=== PATIENT | female | born 1955 | race Caucasian/White ===

== ENCOUNTER 2018-10-30 19:16 | Inpatient (IN) | payer OTHER ==
[~2018-10-30 19:16] MED LIST: VANCOMYCIN 1.5 GM in NA CHLORIDE 0.9% 500 ML IVPB SCH
[2018-10-30] MEDS ORDERED: VANCOMYCIN 1 GM/VIAL ONE (20:32)
[2018-10-30] MEDS ORDERED: PIPER/TAZO/NS 3.375gm 3.375 GM/100 ML BAG ONE (20:33)
--- NOTE | 2018-10-30 20:38 | ER ---
Nurse's Notes [facility] Name: Aurora Miller Age: 63 yrs Sex: Female : 1955 Arrival Date: 10/30/2018 Time: 19:20 Bed 14 Private MD: Diagnosis: Osteomyelitis;Type 1 diabetes mellitus with foot ulcer Presentation: 10/30 19:25 Presenting complaint: Patient states: Dr. Quezada told her to come to the ER to have her ak1 left foot wound "scrubbed out" Home Health nurses have been taking care of wound. pt stated Dr. Quezada stated the Home Health nurses have not been doing a "good job". Transition of care: patient was not received from another setting of care. Onset of symptoms is unknown. Risk Assessment: Do you want to hurt yourself or someone else? Patient reports no desire to harm self or others. Initial Sepsis Screen: Does the patient meet any 2 criteria? No. Patient's initial sepsis screen is negative. Does the patient have a suspected source of infection? No. Patient's initial sepsis screen is negative. Care prior to arrival: None. 19:25 Method Of Arrival: Ambulatory ak1 19:25 Acuity: TIMA 3 ak1 Triage Assessment: 19:29 General: Appears in no apparent distress. Behavior is calm, cooperative. Pain: ak1 Complains of pain in left foot. 22:03 Injury Description: diabetic ulcer to left foot. lc1 Historical: - Allergies: 19:29 No Known Allergies; ak1 - Home Meds: 19:29 Janumet Oral 2 times per day [Active]; Trulicity subcutaneous subcutaneous [Active]; ak1 lisinopril Oral once daily [Active]; atorvastatin Oral once daily [Active]; Aspirin Oral [Active]; - PMHx: 19:29 Diabetes - IDDM; Hypertension; High Cholesterol; ak1 - PSHx: 19:29 ; Right foot sx; left foot - drianed infection; ak1 - Immunization history:: Adult Immunizations unknown. - Social history:: Smoking status: Patient/guardian denies using tobacco. - Ebola Screening: : No symptoms or risks identified at this time. Screenin:30 Abuse screen: Denies threats or abuse. Denies injuries from another. Nutritional ak1 screening: No deficits noted. Tuberculosis screening: No symptoms or risk factors identified. Fall Risk None identified. Assessment: 21:40 General: Appears uncomfortable, Behavior is calm, cooperative. lc1 21:41 Pain: Denies pain. Neuro: No deficits noted. Cardiovascular: No deficits noted. lc1 Cardiovascular: Denies chest pain, shortness of breath. Respiratory: Airway is patent Trachea midline Respiratory effort is even, unlabored. GI: No signs and/or symptoms were reported involving the gastrointestinal system. : No signs and/or symptoms were reported regarding the genitourinary system. EENT: No signs and/or symptoms were reported regarding the EENT system. Derm: Wound noted left foot Wound is ulceration to bottom of left foot with drainage present, patient states she has been seeing Dr Quezada and has home health coming to see her but they have not been cleaning her foot. Reports. Musculoskeletal: No signs and/or symptoms reported regarding the musculoskeletal system. Swelling present in left foot. Vital Signs: 19:29 BP 144 / 75; Pulse 118; Resp 20; Temp 98.5; Pulse Ox 100% on R/A; Weight 87.09 kg (R); ak1 Height 5 ft. 4 in. (162.56 cm); Pain 9/10; 21:45 BP 129 / 66; Pulse 76; Resp 18; Pulse Ox 99% on R/A; lc1 22:03 BP 145 / 74; Pulse 74; Resp 20; Pulse Ox 100% on R/A; lc1 19:29 Body Mass Index 32.96 (87.09 kg, 162.56 cm) ak1 ED Course: 19:20 Patient arrived in ED. cl3 19:26 Triage completed. ak1 19:29 Arm band placed on Patient placed in waiting room, Patient notified of wait time. ak1 19:30 Patient has correct armband on for positive identification. ak1 20:00 No apparent distress. lc1 20:00 Inserted saline lock: 20 gauge in right antecubital area, using aseptic technique. lc1 20:06 Amaury Serna MD is Attending Physician. gs 20:24 Maryann Jaquez is Primary Nurse. lc1 20:36 Jesse Gee DO is Hospitalizing Provider. gs 22:01 No provider procedures requiring assistance completed. lc1 22:02 Awaiting bed assignment. lc1 22:03 Patient admitted, IV remains in place. lc1 Administered Medications: 20:53 Drug: Zosyn 3.375 grams Route: IVPB; Infused Over: 60 mins; Site: right antecubital; 1 21:53 Follow up: Response: No adverse reaction; IV Status: Completed infusion lc1 22:01 Drug: vancoMYCIN 1 grams Route: IVPB; Infused Over: 2 hrs; Site: right antecubital; lc1 22:34 Follow up: Response: No adverse reaction lc1 22:37 Follow up: IV Status: Infusion continued upon admission lc1 Outcome: 20:37 Decision to Hospitalize by Provider. 22:02 Admitted to Tele 1 22:02 Condition: good 22:02 Instructed on the need for admit. 22:15 Admitted to Tele accompanied by tech, room 423, with chart, Report called to savanna 1 22:38 Patient left the ED. 1 Signatures: Maryann Jaquez lc1 Consuelo Palomares RN RN ak1 Amaury Serna MD MD gs Lewis, Charde cl3 Corrections: (The following items were deleted from the chart) 19:30 19:25 Acuity: TIMA 4 ak1 ak1 22:02 20:00 Awaiting bed assignment, 1 1
--- NOTE | 2018-10-30 20:39 | EDPHYS ---
Physician Documentation [facility] Name: Aurora Miller Age: 63 yrs Sex: Female : 1955 Arrival Date: 10/30/2018 Time: 19:20 Bed 14 Private MD: ED Physician Amaury Serna HPI: 10/30 20:21 This 63 yrs old Female presents to ER via Ambulatory with complaints of Foot gs Injury. 20:21 The patient presents with chronic ulcer. Onset: The symptoms/episode began/occurred 5 gs month(s) ago. Associated signs and symptoms: Pertinent negatives: fever, warmth. Severity of symptoms: At their worst the symptoms were severe, in the emergency department the symptoms are unchanged. The patient has experienced similar episodes in the past, chronically. The patient has been recently seen by a physician: sonya Vergara admitted mri, +. Historical: - Allergies: 19:29 No Known Allergies; ak1 - Home Meds: 19:29 Janumet Oral 2 times per day [Active]; Trulicity subcutaneous subcutaneous [Active]; ak1 lisinopril Oral once daily [Active]; atorvastatin Oral once daily [Active]; Aspirin Oral [Active]; - PMHx: 19:29 Diabetes - IDDM; Hypertension; High Cholesterol; ak1 - PSHx: 19:29 ; Right foot sx; left foot - drianed infection; ak1 - Immunization history:: Adult Immunizations unknown. - Social history:: Smoking status: Patient/guardian denies using tobacco. - Ebola Screening: : No symptoms or risks identified at this time. ROS: 20:21 All other systems are negative. gs Exam: 20:21 ENT: Nares patent. No nasal discharge, no septal abnormalities noted. Tympanic gs membranes are normal and external auditory canals are clear. Oropharynx with no redness, swelling, or masses, exudates, or evidence of obstruction, uvula midline. Mucous membranes moist. Neck: Trachea midline, no thyromegaly or masses palpated, and no cervical lymphadenopathy. Supple, full range of motion without nuchal rigidity, or vertebral point tenderness. No Meningismus. Respiratory: Lungs have equal breath sounds bilaterally, clear to auscultation and percussion. No rales, rhonchi or wheezes noted. No increased work of breathing, no retractions or nasal flaring. Abdomen/GI: Soft, non-tender, with normal bowel sounds. No distension or tympany. No guarding or rebound. No evidence of tenderness throughout. 20:21 Neuro: Awake and alert, GCS 15, oriented to person, place, time, and situation. Cranial nerves II-XII grossly intact. Motor strength 5/5 in all extremities. Sensory grossly intact. Cerebellar exam normal. Normal gait. 20:21 Constitutional: The patient appears alert, awake. 20:21 Cardiovascular: Rate: tachycardic, Rhythm: regular. 20:21 Musculoskeletal/extremity: Perfusion: the patient is normally perfused throughout, decreased sensation. 20:21 Skin: lesion(s), stage 5 ulcer bottom left foot. Vital Signs: 19:29 BP 144 / 75; Pulse 118; Resp 20; Temp 98.5; Pulse Ox 100% on R/A; Weight 87.09 kg (R); ak1 Height 5 ft. 4 in. (162.56 cm); Pain 9/10; 21:45 BP 129 / 66; Pulse 76; Resp 18; Pulse Ox 99% on R/A; lc1 22:03 BP 145 / 74; Pulse 74; Resp 20; Pulse Ox 100% on R/A; lc1 19:29 Body Mass Index 32.96 (87.09 kg, 162.56 cm) ak1 MDM: 20:35 Data reviewed: vital signs, nurses notes. Physician consultation: Ernesto Quezada DPM and gs will see patient in inpatient room. 20:37 Patient medically screened. 10/30 20:18 Order name: CBC with Diff; Complete Time: 21:23 10/30 20:18 Order name: Basic Metabolic Panel 10/30 20:18 Order name: Blood Culture* Administered Medications: 20:53 Drug: Zosyn 3.375 grams Route: IVPB; Infused Over: 60 mins; Site: right antecubital; 1 21:53 Follow up: Response: No adverse reaction; IV Status: Completed infusion 1 22:01 Drug: vancoMYCIN 1 grams Route: IVPB; Infused Over: 2 hrs; Site: right antecubital; 1 22:34 Follow up: Response: No adverse reaction [facility] 22:37 Follow up: IV Status: Infusion continued upon admission [facility] Disposition: 10/30/18 20:37 Hospitalization ordered by Jesse Gee for Observation. Preliminary diagnosis are Osteomyelitis, Type 1 diabetes mellitus with foot ulcer. - Bed requested for Telemetry/MedSurg (observation). - Status is Observation. lc1 - Condition is Stable. - Problem is an acute exacerbation. - Symptoms are unchanged. UTI on Admission? No Signatures: Dispatcher [employer] EDMS Grace Wang RN RN Gisele, Maryann 1 Consuelo Palomares RN RN [facility] Amaury Serna MD MD Corrections: (The following items were deleted from the chart) 21:06 20:37 Hospitalization Ordered by Jesse Gee DO for Observation. Preliminary diagnosis is Osteomyelitis; Type 1 diabetes mellitus with foot ulcer. Bed requested for Telemetry/MedSurg (observation). Status is Observation. Condition is Stable. Problem is an acute exacerbation. Symptoms are unchanged. UTI on Admission? No. 22:38 21:06 10/30/2018 20:37 Hospitalization Ordered by Jesse Gee DO for Observation. lc1 Preliminary diagnosis is Osteomyelitis; Type 1 diabetes mellitus with foot ulcer. Bed requested for Telemetry/MedSurg (observation). Status is Observation. Condition is Stable. Problem is an acute exacerbation. Symptoms are unchanged. UTI on Admission? No. glory
[2018-10-30 20:51] LABS: Absolute Lymphocytes (CBC) 1.3 K/uL (0.7-4.9); Basophils % 0.6 % (0-1.3); Hematocrit 31.3 % (36.0-45.0); Lymphocytes % 13.9 % (15.3-44.8); MPV 7.8 fL (7.6-11.3); RBC Red Blood Cell Count 3.63 M/uL (3.86-4.86)
--- NOTE | 2018-10-30 21:17 | P.HP ---
Certification for Inpatient Patient admitted to: Inpatient With expected LOS: >2 Midnights Patient will require the following post-hospital care: Other (Long-term acute care facility verses skilled placement) Practitioner: I am a practitioner with admitting privileges, knowledge of patient current condition, hospital course, and medical plan of care. Services: Services provided to patient in accordance with Admission requirements found in Title 42 Section 412.3 of the Code of Federal Regulations Patient History Date of Service: 10/30/18 Primary Care Provider: Dr. Nicole; Podiatry-Dr. Quezada Reason for admission: Diabetic left foot ulcer History of Present Illness: 63-year-old female presented to the emergency room after she was told by her cooling machine operator to go to the ER for suspected possible osteomyelitis to her left diabetic foot ulcer. Patient has a diabetic foot ulcer to the sole of her foot. This has been present for over a year. It is been getting worse over time. Today she was seen by her cooling machine operator. Podiatry did a debridement earlier today. She was sent to the ER for further evaluation and treatment. Podiatry suspects osteomyelitis. Podiatry recommends inpatient antibiotic treatment and further evaluation for osteomyelitis. Patient was evaluated in the emergency room. White count 9.1, hemoglobin 10.3. BMP pending at this time. Patient with chronic left foot diabetic ulcer. Patient admitted for further evaluation and treatment. When I saw the patient ER, she appeared stable. She was anxious. Patient with underlying hypertension, hyperlipidemia and diabetes mellitus type 2 insulin dependent. Allergies hydromorphone HCl [From Dilaudid] Allergy (Mild, Verified 08/26/14 17:03) Itching No Known Drug Allergies Allergy (Unverified 10/28/14 22:25) Unknown No Known Allergies Allergy (Uncoded 06/20/16 21:22) Unknown Home medications list reviewed: Yes Home Medications: Aspirin 81 mg PO DAILY 08/20/14 Atorvastatin Calcium 20 mg PO DAILY 04/19/18 Hydrochlorothiazide 12.5 mg PO DAILY 04/19/18 Insulin Glargine,Hum.rec.anlog [Richard Brewer] 50 units SQ BEDTIME 04/19/18 Lisinopril 1 tab PO DAILY 04/19/18 Sitagliptin Phos/Metformin HCl [Janumet 50-1,000 mg Tablet] 2 tab PO DAILY 04/19 - Past Medical/Surgical History Diabetic: Yes -: Hypertension -: Hyperlipidemia -: Diabetes mellitus type 2, insulin dependent -: Chronic diabetic foot ulcer left foot -: 2 C sections -: Colonoscopy -: Foot surgeries Psychosocial/ Personal History: Patient lives at home - Family History Family History: Reviewed- Non-Contributory - Family History Mother -: Cancer - Social History Smoking Status: Never smoker Alcohol use: No CD- Drugs: No Caffeine use: No Place of Residence: Home Review of Systems General: As per HPI Eyes: Unremarkable ENT: Unremarkable Respiratory: Unremarkable Cardiovascular: Unremarkable Gastrointestinal: Unremarkable Musculoskeletal: As per HPI Integumentary: As per HPI Neurological: Unremarkable Lymphatics: Unremarkable Physical Examination - Physical Exam General: Alert, In no apparent distress, Oriented x3, Cooperative HEENT: Atraumatic, Normocephalic, PERRLA, Mucous membr. moist/pink Neck: Supple, No Thyromegaly Respiratory: Clear to auscultation bilaterally, Normal air movement Cardiovascular: Normal pulses, Regular rate/rhythm Gastrointestinal: Normal bowel sounds, Soft and benign, Non-distended, No tenderness, No masses, No rebound, No guarding Musculoskeletal: Other (Chronic foot ulcer to the sole of her left foot. It measures the size of a dime. Dried blood to the sole of her foot as this was recently did) Integumentary: Other (As above) Neurological: Normal speech, Normal strength at 5/5 x4 extr, Normal tone, Abnormal affect (Increased anxiety) - Studies Laboratory Data (last 24 hrs) 10/30/18 20:40: WBC 9.1, Hgb 10.3 L, Hct 31.3 L, Plt Count 272 Assessment and Plan - Plan Impression: Chronic left foot diabetic foot ulcer suspect acute osteomyelitis Diabetes mellitus type 2, insulin-dependent Hypertension Hyperlipidemia Anemia suspect iron deficiency Plan: Chronic left foot diabetic foot ulcer suspect acute osteomyelitis: Patient will be admitted for further evaluation and treatment. Will start cefepime and vancomycin. Pharmacy to monitor and adjust. Will order MRI of the left foot tomorrow to evaluate for osteomyelitis. Patient will be kept NPO after midnight as podiatry plans for did further debridement. If positive for osteomyelitis patient will likely require long-term IV antibiotic therapy. Patient will require PICC line if positive. If also positive for osteomyelitis patient will likely require long-term acute care facility placement verses skilled placement. She has been to a facility before. Await findings and recommendations from podiatry and infectious disease. Will provide DVT prophylaxis-Lovenox. Will provide medication for pain. blood cultures obtained. Daytime hospitalist team will continue her care. Diabetes mellitus type 2, insulin-dependent: Will check A1c. Will continue with Accu-Cheks and provide sliding scale. Will restart basal insulin once the patient is taking oral intake. Hypertension: Continue lisinopril medication. Will monitor and adjust appropriately. Hyperlipidemia: Restart Lipitor. Anemia suspect iron deficiency: Will evaluate for iron and B12 deficiency. Discharge Plan: Other (Likely long-term acute care facility placement verses skilled placement) Plan to discharge in: Greater than 2 days - Advance Directives Does patient have a Living Will: No Does patient have a Durable POA for Healthcare: No - Code Status/Comfort Care Code Status Assessed: Yes (Patient is full code) Time Spent Managing Pts Care (In Minutes): 55
[2018-10-30 21:23] LABS: Potassium 5.7 mmol/L (3.5-5.1)
[2018-10-30] MEDS ORDERED: NA CHLORIDE 0.9% 250 ML ONE (21:57)
[2018-10-30] MEDS ORDERED: ACETAMINOPHEN 500 MG TAB PO PRN (22:05)
[2018-10-30] MEDS ORDERED: GABAPENTIN 100 MG CAP PO PRN (22:05)
[2018-10-30] MEDS ORDERED: HYDROCODONE/APAP 7.5/325 MG TAB PO PRN (22:05)
[2018-10-30] MEDS ORDERED: ACETAMINOPHEN 650MG/RECT SUPP RECT PRN (22:05)
[2018-10-30] MEDS: INSULIN -REGULAR HUMAN 50 UNIT/0.5 ML ML SQ SCH (22:05)
[2018-10-30] MEDS ORDERED: TRAMADOL HCL 50 MG TAB PO PRN (22:05)
[2018-10-30] MEDS ORDERED: ONDANSETRON 4 MG/2 ML VIAL IV PRN (22:05)
[2018-10-30] MEDS ORDERED: LORazepam 2 MG/ML VIAL IV PRN (22:05)
[2018-10-30 23:32] VITALS: BMI 32.1
[2018-10-31 00:17] LABS: Urine Appearance TURBID; Urine Bilirubin NEGATIVE (NEG); Urine Blood 2+ (NEG); Urine Color YELLOW; Urine Glucose NEGATIVE (NEG); Urine Protein NEGATIVE (NEG); Urine pH 5.5 (5.0-7.0)
[2018-10-31] MEDS: ATORVASTATIN 20 MG TAB PO SCH ×2 (00:17→21:33)
[2018-10-31] MEDS: LISINOPRIL 10 MG TAB PO SCH ×3 (00:18→21:00)
[2018-10-31] MEDS: FAMOTIDINE 20 MG TAB PO SCH ×3 (00:18→21:33)
[2018-10-31] MEDS: NA CHLORIDE 0.9% 1,000 ML IV SCH ×2 (00:18→17:09)
[2018-10-31 00:19] LABS: Urine Microscopic Reflex ORDER UMIC
--- NOTE | 2018-10-31 00:45 | P.PN ---
Subjective Date of Service: 10/31/18 Primary Care Provider: Dr. Nicole; Podiatry-Dr. Quezada Chief Complaint: Diabetic left foot ulcer Subjective: Doing well Physical Examination - Vital Signs Temperature: 98.5 F Blood Pressure: 145/74 Pulse: 74 Respirations: 20 - Physical Exam General: Alert, In no apparent distress, Oriented x3, Cooperative HEENT: Atraumatic Neck: Supple Respiratory: Clear to auscultation bilaterally, Normal air movement Cardiovascular: Normal pulses, Regular rate/rhythm Gastrointestinal: Normal bowel sounds, Soft and benign, Non-distended Integumentary: Other (No changes to the left foot.) Neurological: Normal speech, Normal strength at 5/5 x4 extr, Normal tone - Studies Laboratory Data (last 24 hrs) 10/30/18 20:40: Sodium 144, Potassium 5.7 H*, BUN 30 H, Creatinine 1.08, Glucose 144 H 10/30/18 20:40: WBC 9.1, Hgb 10.3 L, Hct 31.3 L, Plt Count 272 Medications List Reviewed: Yes Assessment & Plan Discharge Plan: Other (LTAC verses SNF) Plan to discharge in: Greater than 2 days Physician Review Additional Text: Impression: Chronic left foot diabetic foot ulcer suspect acute osteomyelitis Diabetes mellitus type 2, insulin-dependent Hypertension Hyperlipidemia Anemia suspect iron deficiency Hyperkalemia Plan: Chronic left foot diabetic foot ulcer suspect acute osteomyelitis: Continue with IV cefepime and vancomycin. Pharmacy to monitor and adjust medication. Patient to have MRI of left foot today to evaluate for osteomyelitis. Patient will be kept NPO as podiatry plans for further debridement. If positive for osteomyelitis patient will likely require long-term IV antibiotic therapy and will need PICC line. If also positive for osteomyelitis patient will likely require long-term acute care facility placement verses skilled placement. She has been to a facility before. Await findings and recommendations from podiatry and infectious disease. Will provide DVT prophylaxis-Lovenox. Will provide medication for pain. Blood cultures obtained. Daytime hospitalist team will continue her care. Diabetes mellitus type 2, insulin-dependent: Await A1c results. Will continue with Accu-Cheks and provide sliding scale. Will restart basal insulin once the patient is taking oral intake. Hypertension: Continue lisinopril medication. Will monitor and adjust appropriately. Hyperlipidemia: Restart Lipitor. Anemia suspect iron deficiency: Will evaluate for iron and B12 deficiency. Lab pending Hyperkalemia: Will recheck potassium. If elevated will provide Kayexalate. May need to consider adjusting lisinopril. Time Spent Managing Pts Care (In Minutes): 55
[2018-10-31] MEDS ORDERED: SOD POLYSTYREN SUL 15 GM/60 ML UCUP PO ONE (01:12)
[2018-10-31 01:47] LABS: Ferritin 101.1 ng/mL (8-388)
[2018-10-31 02:03] LABS: Urine Bacteria LOADED /HPF (<20); Urine Culture Reflex Order REFLEXED
[2018-10-31 04:54] LABS: Magnesium 1.6 mg/dL (1.8-2.4); Potassium 5.5 mmol/L (3.5-5.1)
[2018-10-31 05:08] LABS: Absolute Lymphocytes (CBC) 1.2 K/uL (0.7-4.9); Basophils % 0.4 % (0-1.3); Hematocrit 28.4 % (36.0-45.0); Lymphocytes % 13.1 % (15.3-44.8); MPV 7.6 fL (7.6-11.3); RBC Red Blood Cell Count 3.31 M/uL (3.86-4.86)
[2018-10-31] MEDS ORDERED: MAGNESIUM SULFATE 1 gm IVPB 1 GM/100 ML BAG IV ONE (05:13)
[2018-10-31] MEDS ORDERED: CEFEPIME 1 GM/100 ML BAG IV ONE (05:44)
[2018-10-31] MEDS ORDERED: CEFEPIME 1 GM/VIAL IV SCH (06:00)
[2018-10-31] MEDS ORDERED: CEFEPIME 1 GM/100 ML BAG IV SCH (06:00)
[2018-10-31] MEDS: INSULIN -REGULAR HUMAN 50 UNIT/0.5 ML ML SQ SCH ×4 (07:30→21:31)
--- NOTE | 2018-10-31 07:54 | P.CNS ---
Date of Consult: 10/31/18 Reason for Consult: ulceration with probable osteomyelitis left foot Primary Care Provider: Dr. Nicole; Podiatry-Dr. Quezada Chief Complaint: Diabetic left foot ulcer History of Present Illness: Patient has been under the care of Dr. Nicole and [facility] for months. She was told that the wound was looking better. Patient was seen in Dr. Quezada's office 10/30/18 with noted ulceration that probed to bone. Allergies No Known Drug Allergies Allergy (Verified 10/30/18 22:13) Unknown Home Medications: Aspirin 81 mg PO DAILY 08/20/14 Atorvastatin Calcium 20 mg PO DAILY 04/19/18 Lisinopril 1 tab PO DAILY 04/19/18 Sitagliptin Phos/Metformin HCl [Janumet 50-1,000 mg Tablet] 1 tab PO BID Insulin Degludec [Tresiba Flextouch U-200] 50 units SQ DAILY 10/31/18 - Past Medical/Surgical History Diabetic: Yes -: Hypertension -: Hyperlipidemia -: Diabetes mellitus type 2, insulin dependent -: Chronic diabetic foot ulcer left foot -: 2 C sections -: Colonoscopy -: Foot surgeries Psychosocial/ Personal History: Patient lives at home - Family History Mother History Unknown: Yes Medical History: Cancer Notes: adopted - Social History Smoking Status: Never smoker Alcohol use: No CD- Drugs: No Caffeine use: No Place of Residence: Home Physical Examination Temp Pulse Resp BP Pulse Ox 97.5 F 93 H 20 112/51 L 98 10/31/18 04:37 10/31/18 04:37 10/31/18 04:37 10/31/18 04:37 10/31/18 04:37 General: Alert, In no apparent distress, Oriented x3 Cardiovascular: Normal pulses, Edema (edema left forefoot), Abnormal pulses Capillary refill: <2 Seconds Musculoskeletal: No clubbing, No swelling, No contractures, No erythema, No tenderness, No warmth Integumentary: Diabetic ulcer (ulceration with hypergranulation right planter second mpj that probes to bone. No purulence expressed from the wound. Minimal erythema to left forefoot) Neurological: Abnormal sensation Laboratory Data (last 24 hrs) 10/30/18 20:40: Sodium 144, Potassium 5.7 H*, BUN 30 H, Creatinine 1.08, Glucose 144 H 10/30/18 20:40: WBC 9.1, Hgb 10.3 L, Hct 31.3 L, Plt Count 272 - Problems (1) Diabetic ulcer of left foot Current Visit: No Status: Acute (2) Non-pressure chronic ulcer of left heel and midfoot limited to breakdown of skin Current Visit: No Status: Acute Conclusions/Impression: Infectious disease consulted and awaiting MRI results of left foot to evaluate the extent of osteomyelitis. Patient is stable and on iv antibiotics. Wet to dry dressing left foot bid
[2018-10-31] MEDS: ENOXAPARIN 40 MG/0.4 ML SQ SCH (08:41)
--- NOTE | 2018-10-31 15:15 | RAD REPORT ---
EXAM DESCRIPTION: MRIFoot Left Wo Cont10/31/2018 2:43 pm CLINICAL HISTORY: Left foot pain and swelling COMPARISON: 2013 TECHNIQUE: Axial, sagittal and coronal magnetic resonance imaging of the left foot was obtained. FINDINGS: Extensive abnormal signal involves the second metatarsal and second proximal phalanx. . A 3 centimeter fluid collection lies within the second MTP joint extending into the adjacent medial sof t tissues consistent with abscess/septic arthritis. A dislocation involves the third proximal phalanx . Small areas of abnormal signal involves the first metatarsal head , third metatarsal and third proxim al phalanx compatible with osteomyelitis IMPRESSION: Extensive osteomyelitis involving the second metatarsal and second proximal phalanx. 3 c entimeter fluid collection within the second MTP joint extending into adjacent medial soft tissues co nsistent with abscess/septic arthritis Mild osteomyelitis involving the first metatarsal head, third metatarsal and third proximal phalanx
[2018-10-31] MEDS: CEFEPIME/SWI 1gm 10 ML IV SCH (17:04)
[2018-10-31] MEDS: VANCOMYCIN 1.5 GM in NA CHLORIDE 0.9% 500 ML IVPB SCH (21:35)
[2018-11-01 04:40] LABS: Absolute Lymphocytes (CBC) 1.1 K/uL (0.7-4.9); Basophils % 0.8 % (0-1.3); Hematocrit 26.4 % (36.0-45.0); Lymphocytes % 17.8 % (15.3-44.8)
[2018-11-01 04:54] LABS: Magnesium 1.7 mg/dL (1.8-2.4); Potassium 4.7 mmol/L (3.5-5.1)
[2018-11-01] MEDS: CEFEPIME/SWI 1gm 10 ML IV SCH ×2 (05:09→17:11)
[2018-11-01] MEDS: NA CHLORIDE 0.9% 1,000 ML IV SCH ×2 (05:09→14:05)
[2018-11-01] MEDS ORDERED: MAGNESIUM SULFATE 1 gm IVPB 1 GM/100 ML BAG IV ONE (05:41)
[2018-11-01] MEDS: INSULIN -REGULAR HUMAN 50 UNIT/0.5 ML ML SQ SCH ×4 (08:00→21:53)
[2018-11-01] MEDS: ENOXAPARIN 40 MG/0.4 ML SQ SCH (08:54)
[2018-11-01] MEDS: FAMOTIDINE 20 MG TAB PO SCH ×2 (08:54→21:00)
[2018-11-01] MEDS: LISINOPRIL 10 MG TAB PO SCH ×2 (08:55→21:53)
--- NOTE | 2018-11-01 10:26 | RAD REPORT ---
EXAM DESCRIPTION: US - UPPER EXTREMITY VENOUS UNILATE - 11/01/2018 9:51 am CLINICAL HISTORY: Right upper extremity swelling COMPARISON: None. FINDINGS: The right internal jugular, subclavian, brachial, axillary, cephalic, basilic, radial and ulnar veins demonstrate phasic signal. The veins are generally compressible. Doppler demonstrates good flow IMPRESSION: No evidence of thrombus involving the right upper extremity
--- NOTE | 2018-11-01 14:12 | RAD REPORT ---
EXAM DESCRIPTION: RAD - Chest Single View - 11/01/2018 2:06 pm CLINICAL HISTORY: Device placement PICC line placement IMPRESSION: PICC line with its tip in the proximal superior vena cava
--- NOTE | 2018-11-01 14:18 | P.PN ---
Subjective Date of Service: 11/01/18 Primary Care Provider: Dr. Nicole; Podiatry-Dr. Quezada Chief Complaint: Diabetic left foot ulcer Subjective: No C/O voiced, Ambulating, Working w/ PT, Doing well, Other ( Awaiting PICC line placmenet today. Pending Urine and Wound culture) Review of Systems 10-point ROS is otherwise unremarkable Physical Examination - Vital Signs Temperature: 97.6 F Blood Pressure: 123/76 Pulse: 84 Respirations: 20 Pulse Ox (%): 98 - Physical Exam General: Alert, In no apparent distress HEENT: Atraumatic, PERRLA, EOMI Neck: Supple, JVD not distended Respiratory: Clear to auscultation bilaterally, Normal air movement Cardiovascular: Regular rate/rhythm, Normal S1 S2 Gastrointestinal: Normal bowel sounds, No tenderness Musculoskeletal: Erythema, Tenderness, Warmth (Left side ) Integumentary: No rashes Neurological: Normal speech, Normal tone, Normal affect Lymphatics: No axilla or inguinal lymphadenopathy - Studies Medications List Reviewed: Yes Assessment And Plan - Current Problems (Diagnosis) (1) Diabetic ulcer of left foot Current Visit: No Status: Chronic Plan: Chronic left foot diabetic foot ulcer now with worsening and acute osteomyelitis -Continue with IV cefepime and vancomycin. -MRI of the foot + for osteomyelitis -Podiatry and ID consulted. appreciated Reccs -Wound culture and Urine culture pending at this time -PICC line and Placement at SNF for senior care IV abx (6weeks) Qualifiers: Diabetic foot ulcer location: heel Diabetes mellitus type: type 2 Non- pressure ulcer stage: with necrosis of bone Qualified Code(s): E11.621 - Type 2 diabetes mellitus with foot ulcer; L97.424 - Non-pressure chronic ulcer of left heel and midfoot with necrosis of bone (2) Diabetes mellitus Current Visit: No Status: Chronic Qualifiers: Diabetes mellitus type: type 2 Diabetes mellitus fpc insulin use: with fpc use Diabetes mellitus complication status: with circulatory complication Diabetes mellitus complication detail: with peripheral angiopathy with gangrene Qualified Code(s): E11.52 - Type 2 diabetes mellitus with diabetic peripheral angiopathy with gangrene; 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
[2018-11-01] MEDS: MEDIHONEY 44 ML TOPICAL TUBE TOP SCH (15:00)
--- NOTE | 2018-11-01 20:09 | CON ---
History: This is a 63-year-old female I was consulted for osteomyelitis of her left foot with diabet ic plantar ulcer; extensive osteomyelitis involving 2nd metatarsal, 2nd proximal phalanx and 2nd MTP; mild osteomyelitis in 1st metatarsal and 3rd metatarsal and 3rd proximal phalanx also noted. The pa tient denies any headache, nausea, vomiting, chest pain, abdominal pain, constipation, or diarrhea. 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 Social History: Tobacco negative. Alcohol negative. Family History: Noncontributory except cancer in mother. Medications: Include cefepime and vancomycin. See MAR for other medications. Allergies: NO KNOWN DRUG ALLERGIES. Review of Systems: A 10-point review was performed. Physical Examination: General: This is a 63-year-old female, lying in bed, not in any acute cardiopulmonary distress. Vital Signs: Temperature 97, pulse 84, respirations 16, blood pressure 123/76. HEENT: Unremarkable. Neck: Supple. Lungs: Basal crackles. Heart: S1, S2. Regular. Abdomen: Soft, nontender. Bowel sounds present. Extremities: Left foot ulceration noted. Laboratory Data: Shows WBC 5.9, hemoglobin 9.2, platelets 118. Chemistry shows sodium 144, potassiu m 4.7, chloride 112, bicarb 25, BUN 35, creatinine 1.11, glucose is 220. Micro data: Blood cultures are negative for 24 hours. Wound cultures are pending. Assessment And Plan: Left foot diabetic foot ulcer and osteomyelitis in multiple bones. We will rec [facility] long-term acute care. The patient is refusing at this time. Continue broad-spectrum antibiot ic, total course of 6 weeks. Continue wound care and supportive care. We will follow the patient cl osely. Thank you, Dr. Princess Claros and Dr. Quezada for consult. NF/MODL Voice ID: [id number] Report ID: [id number]
[2018-11-01] MEDS: ATORVASTATIN 20 MG TAB PO SCH (21:52)
[2018-11-01] MEDS: VANCOMYCIN 1.5 GM in NA CHLORIDE 0.9% 500 ML IVPB SCH (21:52)
[2018-11-02 06:44] LABS: Absolute Lymphocytes (CBC) 0.9 K/uL (0.7-4.9); Basophils % 0.8 % (0-1.3); Hematocrit 24.9 % (36.0-45.0); Lymphocytes % 21.4 % (15.3-44.8); MPV 7.6 fL (7.6-11.3); RBC Red Blood Cell Count 2.92 M/uL (3.86-4.86)
[2018-11-02 07:09] LABS: Magnesium 1.7 mg/dL (1.8-2.4); Potassium 4.3 mmol/L (3.5-5.1)
[2018-11-02] MEDS: INSULIN -REGULAR HUMAN 50 UNIT/0.5 ML ML SQ SCH ×4 (08:37→21:43)
[2018-11-02] MEDS: FAMOTIDINE 20 MG TAB PO SCH ×2 (09:00→21:00)
[2018-11-02] MEDS: ENOXAPARIN 40 MG/0.4 ML SQ SCH (10:13)
[2018-11-02] MEDS: LISINOPRIL 10 MG TAB PO SCH ×2 (10:14→21:44)
[2018-11-02] MEDS: CEFEPIME/SWI 1gm 10 ML IV SCH ×2 (10:15→17:43)
[2018-11-02] MEDS: MEDIHONEY 44 ML TOPICAL TUBE TOP SCH (10:16)
[2018-11-02] MEDS ORDERED: MAGNESIUM SULFATE 1 gm IVPB 1 GM/100 ML BAG IV ONE (11:54)
--- NOTE | 2018-11-02 12:51 | P.PN ---
Subjective Date of Service: 11/02/18 Primary Care Provider: Dr. Nicole; Podiatry-Dr. Quezada Chief Complaint: Diabetic left foot ulcer Subjective: No new changes, Tolerating diet, Ambulating, Improving, Working w/ PT, Doing well Review of Systems 10-point ROS is otherwise unremarkable Physical Examination - Vital Signs Temperature: 97.6 F Blood Pressure: 119/76 Pulse: 82 Respirations: 18 Pulse Ox (%): 97 - Physical Exam General: Alert, In no apparent distress HEENT: Atraumatic, PERRLA, EOMI Neck: Supple, JVD not distended Respiratory: Clear to auscultation bilaterally, Normal air movement Cardiovascular: Regular rate/rhythm, Normal S1 S2 Gastrointestinal: Normal bowel sounds, No tenderness Musculoskeletal: Erythema, Tenderness, Warmth Integumentary: No rashes Neurological: Normal speech, Normal tone, Normal affect Lymphatics: No axilla or inguinal lymphadenopathy - Studies Medications List Reviewed: Yes Assessment And Plan - Current Problems (Diagnosis) (1) Diabetic ulcer of left foot Current Visit: No Status: Chronic Plan: Chronic left foot diabetic foot ulcer now with worsening and acute osteomyelitis -Continue with IV cefepime and vancomycin. -MRI of the foot + for osteomyelitis -Podiatry and ID consulted. appreciated Reccs -Wound culture and Urine culture pending at this time -PICC line and Placement at SNF for penitentiary IV abx (6weeks) Qualifiers: Diabetic foot ulcer location: heel Diabetes mellitus type: type 2 Non- pressure ulcer stage: with necrosis of bone Qualified Code(s): E11.621 - Type 2 diabetes mellitus with foot ulcer; L97.424 - Non-pressure chronic ulcer of left heel and midfoot with necrosis of bone (2) Diabetes mellitus Current Visit: No Status: Chronic Qualifiers: Diabetes mellitus type: type 2 Diabetes mellitus intermediate project manager insulin use: with intermediate project manager use Diabetes mellitus complication status: with circulatory complication Diabetes mellitus complication detail: with peripheral angiopathy with gangrene Qualified Code(s): E11.52 - Type 2 diabetes mellitus with diabetic peripheral angiopathy with gangrene; Z79.4 - adjunct faculty for medical terminology (current) use of insulin (3) HTN (hypertension) Current Visit: No Status: Chronic Qualifiers: Hypertension type: essential hypertension Qualified Code(s): I10 - Essential (primary) hypertension (4) Hyperlipidemia Current Visit: No Status: Chronic Qualifiers: Hyperlipidemia type: mixed hyperlipidemia Qualified Code(s): E78.2 - Mixed hyperlipidemia - Plan Pending placement to the [facility] for adjunct faculty for medical terminology IV abx and Hyperbarics Discharge Plan: LTAC Plan to discharge in: Greater than 2 days - Code Status/Comfort Care Code Status Assessed: Yes Critical Care: No
[2018-11-02] MEDS: VANCOMYCIN 1.5 GM in NA CHLORIDE 0.9% 500 ML IVPB SCH (16:44)
[2018-11-02 21:28] VITALS: O2SAT 98
[2018-11-02] MEDS: ATORVASTATIN 20 MG TAB PO SCH (21:44)
[2018-11-03 05:21] LABS: Hematocrit 27.2 % (36.0-45.0); Lymphocytes % 20.8 % (15.3-44.8); MPV 7.5 fL (7.6-11.3); RBC Red Blood Cell Count 3.24 M/uL (3.86-4.86)
[2018-11-03 05:36] LABS: Magnesium 1.8 mg/dL (1.8-2.4); Potassium 4.2 mmol/L (3.5-5.1)
[2018-11-03] MEDS ORDERED: MAGNESIUM SULFATE 1 gm IVPB 1 GM/100 ML BAG IV ONE (05:54)
[2018-11-03] MEDS: CEFEPIME/SWI 1gm 10 ML IV SCH (06:00)
[2018-11-03] MEDS: INSULIN -REGULAR HUMAN 50 UNIT/0.5 ML ML SQ SCH ×3 (08:01→16:26)
[2018-11-03] MEDS: MEDIHONEY 44 ML TOPICAL TUBE TOP SCH (09:00)
[2018-11-03] MEDS: FAMOTIDINE 20 MG TAB PO SCH (09:00)
[2018-11-03] MEDS: ENOXAPARIN 40 MG/0.4 ML SQ SCH (09:15)
[2018-11-03] MEDS: LISINOPRIL 10 MG TAB PO SCH (09:15)
[2018-11-03] MEDS: VANCOMYCIN 1.5 GM in NA CHLORIDE 0.9% 500 ML IVPB SCH (09:16)
--- NOTE | 2018-11-03 13:15 | P.PN ---
Subjective Date of Service: 11/03/18 Primary Care Provider: Dr. Nicole; Podiatry-Dr. Quezada Chief Complaint: Diabetic left foot ulcer Subjective: No C/O voiced, Tolerating diet, Improving, Working w/ PT, Doing well Review of Systems 10-point ROS is otherwise unremarkable Physical Examination - Vital Signs Temperature: 97.7 F Blood Pressure: 143/74 Pulse: 78 Respirations: 18 Pulse Ox (%): 93 - Physical Exam General: Alert, In no apparent distress HEENT: Atraumatic, PERRLA, EOMI Neck: Supple, JVD not distended Respiratory: Clear to auscultation bilaterally, Normal air movement Cardiovascular: Regular rate/rhythm, Normal S1 S2 Gastrointestinal: Normal bowel sounds, No tenderness Musculoskeletal: No tenderness Integumentary: No rashes Neurological: Normal speech, Normal tone, Normal affect Lymphatics: No axilla or inguinal lymphadenopathy - Studies Medications List Reviewed: Yes Assessment And Plan - Current Problems (Diagnosis) (1) Diabetic ulcer of left foot Current Visit: No Status: Chronic Plan: Chronic left foot diabetic foot ulcer now with worsening and acute osteomyelitis -Continue with IV cefepime and vancomycin. -MRI of the foot + for osteomyelitis -Podiatry and ID consulted. appreciated Reccs -Wound culture Staph Aureus and Pseudo Areus -PICC line and Placement at SNF for group home IV abx (6weeks) Qualifiers: Diabetic foot ulcer location: heel Diabetes mellitus type: type 2 Non- pressure ulcer stage: with necrosis of bone Qualified Code(s): E11.621 - Type 2 diabetes mellitus with foot ulcer; L97.424 - Non-pressure chronic ulcer of left heel and midfoot with necrosis of bone (2) UTI (urinary tract infection) Current Visit: Yes Status: Acute Plan: UA with UTI -Urine culture + for ECOLI and Entero -ON IV cefepime Qualifiers: Urinary tract infection type: acute cystitis Hematuria presence: without hematuria Qualified Code(s): N30.00 - Acute cystitis without hematuria (3) Diabetes mellitus Current Visit: No Status: Chronic Qualifiers: Diabetes mellitus type: type 2 Diabetes mellitus chcf insulin use: with extermination inspector use Diabetes mellitus complication status: with circulatory complication Diabetes mellitus complication detail: with peripheral angiopathy with gangrene Qualified Code(s): E11.52 - Type 2 diabetes mellitus with diabetic peripheral angiopathy with gangrene; Z79.4 - roasterman (current) use of insulin (4) HTN (hypertension) Current Visit: No Status: Chronic Qualifiers: Hypertension type: essential hypertension Qualified Code(s): I10 - Essential (primary) hypertension (5) Hyperlipidemia Current Visit: No Status: Chronic Qualifiers: Hyperlipidemia type: mixed hyperlipidemia Qualified Code(s): E78.2 - Mixed hyperlipidemia - Plan Pending placement to the [facility] for group home IV abx and Hyperbarics Physician Review Additional Text: Impression: Chronic left foot diabetic foot ulcer suspect acute osteomyelitis Diabetes mellitus type 2, insulin-dependent Hypertension Hyperlipidemia Anemia suspect iron deficiency Hyperkalemia Plan: Chronic left foot diabetic foot ulcer suspect acute osteomyelitis: Continue with IV cefepime and vancomycin. Pharmacy to monitor and adjust medication. Patient to have MRI of left foot today to evaluate for osteomyelitis. Patient will be kept NPO as podiatry plans for further debridement. If positive for osteomyelitis patient will likely require long-term IV antibiotic therapy and will need PICC line. If also positive for osteomyelitis patient will likely require long-term acute care facility placement verses skilled placement. She has been to a facility before. Await findings and recommendations from podiatry and infectious disease. Will provide DVT prophylaxis-Lovenox. Will provide medication for pain. Blood cultures obtained. Daytime hospitalist team will continue her care. Diabetes mellitus type 2, insulin-dependent: Await A1c results. Will continue with Accu-Cheks and provide sliding scale. Will restart basal insulin once the patient is taking oral intake. Hypertension: Continue lisinopril medication. Will monitor and adjust appropriately. Hyperlipidemia: Restart Lipitor. Anemia suspect iron deficiency: Will evaluate for iron and B12 deficiency. Lab pending Hyperkalemia: Will recheck potassium. If elevated will provide Kayexalate. May need to consider adjusting lisinopril.
--- NOTE | 2018-11-03 14:47 | P.DS ---
Admission Date: 10/30/18 Discharge Date: 11/03/18 Primary Care Provider: Dr. Nicole; Podiatry-Dr. Quezada Reason for Admission: Diabetic left foot ulcer - Problems (1) Diabetic ulcer of left foot Current Visit: No Status: Chronic Qualifiers: Diabetic foot ulcer location: heel Diabetes mellitus type: type 2 Non- pressure ulcer stage: with necrosis of bone Qualified Code(s): E11.621 - Type 2 diabetes mellitus with foot ulcer; L97.424 - Non-pressure chronic ulcer of left heel and midfoot with necrosis of bone (2) UTI (urinary tract infection) Current Visit: Yes Status: Acute Qualifiers: Urinary tract infection type: acute cystitis Hematuria presence: without hematuria Qualified Code(s): N30.00 - Acute cystitis without hematuria (3) Diabetes mellitus Current Visit: No Status: Chronic Qualifiers: Diabetes mellitus type: type 2 Diabetes mellitus fpc insulin use: with roasterman use Diabetes mellitus complication status: with circulatory complication Diabetes mellitus complication detail: with peripheral angiopathy with gangrene Qualified Code(s): E11.52 - Type 2 diabetes mellitus with diabetic peripheral angiopathy with gangrene; Z79.4 - FPC (current) use of insulin (4) HTN (hypertension) Current Visit: No Status: Chronic Qualifiers: Hypertension type: essential hypertension Qualified Code(s): I10 - Essential (primary) hypertension (5) Hyperlipidemia Current Visit: No Status: Chronic Qualifiers: Hyperlipidemia type: mixed hyperlipidemia Qualified Code(s): E78.2 - Mixed hyperlipidemia Brief History of Present Illness: 63-year-old female presented to the emergency room after she was told by her eating disorder psychologist to go to the ER for suspected possible osteomyelitis to her left diabetic foot ulcer. Patient has a diabetic foot ulcer to the sole of her foot. This has been present for over a year. It is been getting worse over time. Today she was seen by her eating disorder psychologist. Podiatry did a debridement earlier today. She was sent to the ER for further evaluation and treatment. Podiatry suspects osteomyelitis. Podiatry recommends inpatient antibiotic treatment and further evaluation for osteomyelitis. Patient was evaluated in the emergency room. White count 9.1, hemoglobin 10.3. BMP pending at this time. Patient with chronic left foot diabetic ulcer. Patient admitted for further evaluation and treatment. When I saw the patient ER, she appeared stable. She was anxious. Patient with underlying hypertension, hyperlipidemia and diabetes mellitus type 2 insulin dependent. Hospital Course: Overall during the hospital stay patient remained stable Patient was initially admitted to the hospital for left diabetic foot ulcer from the wound healing center. Infectious disease and podiatry was consulted here in the hospital. Patient was started on IV fluids along with IV antibiotics vanc and cefepime. Wound culture and blood cultures were collected here in the hospital. Foot MRI was done here is well. Foot MRI was positive for osteomyelitis. Infectious disease at that time recommended the patient get 6 weeks total IV antibiotics at the [facility] facility. Patient's wound care was positive for Staph aureus and Pseudomonas which was sensitive to vancomycin. Patient's urine culture was also positive for E. coli and Enterobacter which was sensitive to cefepime. At that time a referral was made to the [facility] for patient to be transferred there for treatment of long- term IV antibiotics on with hyperbaric oxygen therapy. Patient was accepted at the [facility] facility and was thus transferred there for further care Vital Signs/Physical Exam: Temp Pulse Resp BP Pulse Ox 97.7 F 78 18 143/74 H 93 11/03/18 13:15 11/03/18 13:15 11/03/18 13:15 11/03/18 13:15 11/03/18 13:15 General: Alert, In no apparent distress HEENT: Atraumatic, PERRLA, EOMI Neck: Supple, JVD not distended Respiratory: Clear to auscultation bilaterally, Normal air movement Cardiovascular: Regular rate/rhythm, Normal S1 S2 Gastrointestinal: Normal bowel sounds, No tenderness Musculoskeletal: No tenderness Integumentary: No rashes Neurological: Normal speech, Normal tone, Normal affect Lymphatics: No axilla or inguinal lymphadenopathy Laboratory Data at Discharge: WBC 4.8 K/uL (4.3-10.9) D 11/03/18 05:10 Hgb 9.2 g/dL (12.0-15.0) L 11/03/18 05:10 Hct 27.2 % (36.0-45.0) L 11/03/18 05:10 Plt Count 210 K/uL (152-406) 11/03/18 05:10 Sodium 144 mmol/L (136-145) 11/03/18 05:10 Potassium 4.2 mmol/L (3.5-5.1) 11/03/18 05:10 BUN 18 mg/dL (7-18) 11/03/18 05:10 Creatinine 0.92 mg/dL (0.55-1.3) 11/03/18 05:10 Glucose 261 mg/dL (74-106) H 11/03/18 05:10 Magnesium 1.8 mg/dL (1.8-2.4) 11/03/18 05:10 Triglycerides 74 mg/dL (<150) 10/31/18 04:13 Cholesterol 126 mg/dL (<200) 10/31/18 04:13 HDL Cholesterol 32 mg/dL (40-60) L 10/31/18 04:13 Cholesterol/HDL Ratio 3.94 10/31/18 04:13 Home Medications: Aspirin 81 mg PO DAILY 08/20/14 Atorvastatin Calcium 20 mg PO DAILY 04/19/18 Lisinopril 1 tab PO DAILY 04/19/18 Sitagliptin Phos/Metformin HCl [Janumet 50-1,000 mg Tablet] 1 tab PO BID Insulin Degludec [Tresiba Flextouch U-200] 50 units SQ DAILY 10/31/18 CEFEPIME/SWI 1gm [Maxipime 1 gm/10 ml Ivp] 1 gm IV Q12H #28 syr 11/03/18 Vancomycin/Water For Inj (Peg) [Vancomycin 1.5 Gram/300 ml Bag] 1.5 gm IV Q24H 42 Days piggyback 11/03/18 New Medications: CEFEPIME/SWI 1gm [Maxipime 1 gm/10 ml Ivp] 1 gm IV Q12H #28 syr Vancomycin/Water For Inj (Peg) [Vancomycin 1.5 Gram/300 ml Bag] 1.5 gm IV Q24H 42 Days piggyback Diet: Regular Activity: Ad angelina Followup: Joe Lazaro MD [ACTIVE - CAN ADMIT] - 1 Week (call to schedule appointment)
[2018-11-03 16:10] VITALS: BP 120/63; TEMP 97.1
== END 2018-11-03 17:04 | disposition swing bed (61) | DRG 540 ==
LOC: ER 19:16 → ERHOLD 21:15 → 4TH 22:25
PROVIDERS: ADMIT Family Medicine; ATTEND Family Medicine
PROC: 02HV33Z Insertion of Infusion Device into Superior Vena Cava, Percutaneous Approach (ICD-10-PCS; principal; 2018-11-01)
DX: M86.172 Other acute osteomyelitis, left ankle and foot (principal); N30.00 Acute cystitis without hematuria; L97.424 Non-pressure chronic ulcer of left heel and midfoot with necrosis of bone; B95.61 Methicillin susceptible Staphylococcus aureus infection as the cause of diseases classified elsewhere; B96.5 Pseudomonas (aeruginosa) (mallei) (pseudomallei) as the cause of diseases classified elsewhere; B96.20 Unspecified Escherichia coli [E. coli] as the cause of diseases classified elsewhere; B96.89 Other specified bacterial agents as the cause of diseases classified elsewhere; E11.621 Type 2 diabetes mellitus with foot ulcer; I10 Essential (primary) hypertension; E78.5 Hyperlipidemia, unspecified; Z79.4 Long term (current) use of insulin; E87.5 Hyperkalemia; D50.9 Iron deficiency anemia, unspecified
CPT/HCPCS: 36415; 71045; 80048; 80061; 80202; 81003; 81015; 82607; 82728; 82962; 83036; 83540; 83735; 84132; 84145; 84466; 85025; 87040; 87070; 87077; 87086; 87088; 87186; 87205; 93971; 96365; 96367; 99285; J0692; J1650; J2543; J3475; J7030

== ENCOUNTER 2019-01-25 09:09 | Day surgery (SDC) | payer OTHER ==
--- NOTE | 2019-01-24 11:44 | RAD REPORT ---
EXAM DESCRIPTION: RAD - Chest Pa And Lat (2 Views) - 01/24/2019 11:35 am CLINICAL HISTORY: preop Chest pain. COMPARISON: Chest Single View dated 11/01/2018; ABDOMEN 1 VIEW KUB dated 01/07/2015; CHEST SINGLE VIE W dated 10/08/2014; CHEST SINGLE VIEW dated 08/24/2014 FINDINGS: The lungs are clear. The heart is mildly prominent in size. No displaced fractures. IMPRESSION: Mild cardiomegaly.
[2019-01-24 12:35] LABS: Absolute Lymphocytes (CBC) 1.3 K/uL (0.7-4.9); Basophils % 0.9 % (0-1.3); Lymphocytes % 19.4 % (15.3-44.8); MPV 8.1 fL (7.6-11.3); RBC Red Blood Cell Count 3.86 M/uL (3.86-4.86)
[2019-01-24 12:49] LABS: Potassium 5.2 mmol/L (3.5-5.1)
--- NOTE | 2019-01-24 13:24 | EKG ---
Test Date: 2019-01-24 Test Time: 11:14:43 Director Of Conservation: JILLIAN MEASUREMENT RESULTS: Intervals: Rate: 93 IA: 180 QRSD: 76 QT: 356 QTc: 442 [place]: P: 56 IA: 180 QRS: 17 T: 55 INTERPRETIVE STATEMENTS: Normal sinus rhythm Cannot rule out Septal infarct, age undetermined Abnormal ECG Compared to ECG 10/08/2014 09:43:35 borderline myocardial infarct finding now present Electronically Signed On 01-24-19 13:23:57 BARGE WORKER by Jorge Moss
--- OUTSIDE RECORDS SUMMARY | 2019-01-25 09:12 | XMS REPORT ---
:1955 [facility] Address [address] [place] [address] [address]. U[address] [place] [address] Care Team Providers Name Role Phone Unavailable Unavailable Unavailable Problems This patient has no known problems. Allergies, Adverse Reactions, Alerts This patient has no known allergies or adverse reactions. Medications This patient has no known medications.
[2019-01-25] MEDS ORDERED: NA CHLORIDE 0.9% 1,000 ML ONE (09:31)
[2019-01-25] MEDS ORDERED: CEFAZOLIN/SWI 1gm 1 GM/10 ML SYR ONE (09:31)
[2019-01-25] MEDS ORDERED: propofoL 200 MG/20 ML VIAL IV ONE (10:04)
[2019-01-25] MEDS ORDERED: BUPIVACAINE 0.5% PF 10 ML VIAL ONE (10:04)
[2019-01-25] MEDS ORDERED: COLLAGENASE 30 GM OINTMENT TOP ONE (10:04)
[2019-01-25] MEDS ORDERED: FENTANYL CITR 100 MCG/2 ML ONE (10:04)
[2019-01-25] MEDS ORDERED: MIDAZOLAM HCL 2 MG/2 ML INJ ONE (10:05)
[2019-01-25] MEDS ORDERED: LIDOCAINE 2% MPF 5 ML VIAL ONE (10:05)
[2019-01-25] MEDS ORDERED: INSULIN -REGULAR HUMAN 50 UNIT/0.5 ML ML ONE (12:02)
[2019-01-25 14:48] VITALS: BP 114/61; TEMP 97.8; O2SAT 100
--- NOTE | 2019-01-25 23:11 | OP ---
Date of Procedure: 01/25/2019 Surgeon: Aung Duarte MD Enrolled Nurse: DAISY Ma Preoperative Diagnosis: Osteomyelitis, second metatarsal bone and nonhealing wound, left foot. Postoperative Diagnosis: Osteomyelitis, second metatarsal bone and nonhealing wound, left foot. Procedure: Left second toe transmetatarsal amputation and excision of a nonhealing wound, left foot. Estimated Blood Loss: Minimal. Specimen: Nonhealing wound and left second toe and transmetatarsal bone. Findings: As above. Anesthesia: General. Complications: None. Disposition: Patient tolerated the procedure in stable condition, taken to Recovery in good general condition. Procedure In Detail: The patient was brought to the OR and placed in supine position. General anest hesia was begun. Patient was prepped and draped in the usual sterile fashion. Marcaine 0.5% was inf iltrated locally. Then, a wedge incision made from the dorsum to the plantar aspect to include the n onhealing ulcer at the base of the second metatarsal head and this wedge resection proceeded down to the shaft of the second metatarsal bone and bone cutter was used to cut the bone. Bleeding controlle d with cautery. The second toe with nonhealing wound and the metatarsal bone excised in 1 piece, sen t to Pathology. Wound irrigated. Bleeding controlled with cautery. Rongeurs used to smoothen out t he rough edges of the bone segment. There was no evidence of bleeding. Good healthy tissue was enco untered. There was no evidence of any active infection. Therefore, 2-0 nylon was used to close the wound on the dorsum and the plantar aspect. The distal aspect of the wound was left open for packing purposes. Sterile dressing was applied with wet-to-dry normal saline dressing change and patient wa s awakened and taken to the Recovery in good general condition. Discharge Note: Patient will go to Day-Surgery, then home when stable. Disposition: Home. Condition: Stable. Discharge Instructions: Resume home medications and diet. Activity as tolerated. No heavy lifting. Surgical shoe is ordered. Offload wound as ordered. Wet-to-dry normal saline dressing changes ariela ly. Patient has home health. Follow up in the wound healing center in 1 week. Tylenol No. 3 one ta blet p.o. q.4 p.r.n. pain and Cipro 500 mg p.o. q.12. /JOLLY Voice ID: [id number] Report ID: [id number]
== END 2019-01-25 14:25 | disposition home or self-care (01) ==
LOC: OR 09:09
PROVIDERS: ATTEND Surgery
PROC: 0Y6N0Z5 Detachment at Left Foot, Complete 2nd Ray, Open Approach (ICD-10-PCS; principal; 2019-01-25 11:15)
DX: M86.8X7 Other osteomyelitis, ankle and foot (principal); E11.40 Type 2 diabetes mellitus with diabetic neuropathy, unspecified; I10 Essential (primary) hypertension; E78.5 Hyperlipidemia, unspecified
CPT/HCPCS: 36415; 71046; 80048; 82947; 85025; 88305; 88311; 93005; J0690; J2250; J2704; J3010; J3590; J7030

== ENCOUNTER 2020-06-17 14:04 | Inpatient (IN) | payer OTHER ==
--- OUTSIDE RECORDS SUMMARY | 2020-06-17 14:06 | XMS REPORT | Continuity of Care Document ---
:1955 Author Organization [facility] t Address [address] [place] [address] Care Team Providers Name Role Phone Maxime Godoy DO Attending Clinician Manuel Martinez Attending Clinician Paola Tristan Attending Clinician Carline TAVARES, Daria Attending Clinician Problems This patient has no known problems. Allergies, Adverse Reactions, Alerts This patient has no known allergies or adverse reactions. Medications This patient has no known medications. Procedures This patient has no known procedures. Encounters Start End Encounter Admission Attending Care Care Encounter Source Date/Time Date/Time Type Type Clinicians Facility Department ID 2020-06-04 2020-06-04 [facility] [id number] 14:25:00 16:20:00 Faith Sandoval [id number] [place] [id number] [place] [address] [id number] 2020-05-29 2020-05-29 Emergency Torito [facility] [id number] 15:26:00 18:27:00 Alejandra Sandoval [id number] [place] [id number] [place] [id number] 2020-01-23 2020-01-23 Emergency Adam Escalante [facility] [id number] 16:03:00 16:50:00 Paola Sandoval [id number] [place] [id number] [place] [id number] 2019-10-26 2019-10-26 Office Carline [facility] [id number] 14:33:17 16:50:57 Visit Franklin Sandoval [id number] [place] [id number] Profess [phone] [address] Results This patient has no known results.
[2020-06-17 17:21] LABS: Absolute Lymphocytes (CBC) 0.9 K/uL (0.7-4.9); Basophils % 0.6 % (0-1.3); Hematocrit 28.9 % (36.0-45.0); Lymphocytes % 6.8 % (15.3-44.8); MPV 7.3 fL (7.6-11.3); RBC Red Blood Cell Count 3.34 M/uL (3.86-4.86)
[2020-06-17 17:39] LABS: Albumin 2.5 g/dL (3.4-5.0); Bilirubin Total 0.5 mg/dL (0.2-1.0); Potassium 4.8 mmol/L (3.5-5.1); Protein, Total 7.5 g/dL (6.4-8.2)
[2020-06-17 17:46] LABS: Blood Morphology Comment NOT SEEN (NOT SEEN); Platelet Estimate ADEQ; White Blood Cell Scan OK (OK)
[2020-06-17] MEDS ORDERED: PIPER/TAZO/NS 3.375gm 3.375 GM/100 ML BAG ONE (18:19)
[2020-06-17] MEDS ORDERED: VANCOMYCIN 1 GM/VIAL ONE (18:20)
[2020-06-17] MEDS ORDERED: NA CHLORIDE 0.9% 250 ML ONE (18:20)
--- NOTE | 2020-06-17 18:58 | RAD REPORT ---
EXAM DESCRIPTION: USExtremity Venous Uni Ltd06/17/2020 6:52 pm CLINICAL HISTORY: left leg pain and swelling. COMPARISON: None. FINDINGS: Left common femoral, superficial femoral, popliteal and posterior tibial veins are compre ssible and demonstrate augmentation. Doppler demonstrates good flow. IMPRESSION: No evidence of deep venous thrombosis involving the left lower extremity.
--- NOTE | 2020-06-17 19:00 | RAD REPORT ---
EXAM DESCRIPTION: US - Lower Extremity Artery Uni Ltd - 06/17/2020 6:51 pm CLINICAL HISTORY: pain/peripheral vascular disease COMPARISON: None FINDINGS: The waveform of the left common femoral, left superficial femoral and left popliteal arteries triphas ic Waveform left posterior tibial artery monophasic. Waveform left dorsalis pedis artery biphasic IMPRESSION: Mild distal lower extremity arterial disease
--- NOTE | 2020-06-17 19:39 | ER ---
Nurse's Notes [facility] Name: Aurora Miller Age: 65 yrs Sex: Female : 1955 Arrival Date: 06/17/2020 Time: 14:06 Bed 30 Private MD: Diagnosis: Cellulitis of the Left Foot Presentation: 06/17 14:15 Chief complaint: Patient states: redness and drainage to L foot that started 3 days ss ago. Denies fever. Sent by Dr. Nicole office for evaluation of possible gangrene. Coronavirus screen: Client denies travel out of the [place] in the last 14 days. Ebola Screen: Patient denies exposure to infectious person. Patient denies travel to an Ebola-affected area in the 21 days before illness onset. Initial Sepsis Screen: Does the patient meet any 2 criteria? HR > 90 bpm. Does the patient have a suspected source of infection? Yes: Skin breakdown/wound. Risk Assessment: Do you want to hurt yourself or someone else? Patient reports no desire to harm self or others. Onset of symptoms was June 13, 2020. 14:15 Method Of Arrival: Ambulatory ss 14:15 Acuity: TIMA 3 ss Historical: - Allergies: 14:19 No Known Allergies; ss - PMHx: 14:19 Diabetes - IDDM; High Cholesterol; Hypertension; ss - PSHx: 14:19 ; Right foot sx; left foot - drianed infection; ss - Immunization history:: Adult Immunizations up to date. - Social history:: Smoking status: Patient denies any tobacco usage or history of. Screenin:00 Abuse screen: Denies threats or abuse. Nutritional screening: No deficits noted. kg Tuberculosis screening: No symptoms or risk factors identified. Fall Risk No fall in past 12 months (0 pts). Secondary diagnosis (15 points) impaired mobility, IV access (20 points). Ambulatory Aid- None/Bed Rest/Nurse Assist (0 pts). Gait- Impaired (20 pts.). Mental Status- Oriented to own ability (0 pts). Total Odom Fall Scale indicates Low Risk Score (25-44 pts). Fall prevention measures have been instituted. Side Rails Up X 2 Placed close to Nursing Station Frequent Obs/Assesments occuring As available Patient and Family Educated on Fall Prevention Program and strategies. Assessment: 17:53 General: Appears in no apparent distress. Behavior is calm, cooperative, appropriate kg for age, quiet, Smells of malodorous. Pain: Denies pain. Neuro: No deficits noted. Cardiovascular: No deficits noted. Respiratory: No deficits noted. GI: No deficits noted. : No deficits noted. EENT: No deficits noted. Derm: Wound noted lateral aspect of right toes, plantar aspect of right first toe, plantar aspect of right second toe, plantar aspect of right third toe, ball of right foot, right first toe and right second toe Wound is Unstageable decubitus wound. 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 19:44 Reassessment: Pt left for MRI. kg 21:24 Reassessment: Pt is back from MRI. kg Vital Signs: 14:15 BP 114 / 72; Pulse 112; Resp 17; Temp 99.7(TE); Pulse Ox 99% on R/A; Weight 78.93 kg; ss Height 5 ft. 4 in. (162.56 cm); Pain 0/10; 18:00 BP 109 / 66; Pulse 59; Resp 18; Pulse Ox 100% on R/A; kg 19:00 BP 110 / 61; Pulse 67; Resp 18; Pulse Ox 100% on R/A; kg 14:15 Body Mass Index 29.87 (78.93 kg, 162.56 cm) ss ED Course: 14:06 Patient arrived in ED. as 14:18 Triage completed. ss 14:19 Arm band placed on right wrist. ss 16:25 Clyde Sloan PA is PHCP. [facility] 16:25 Rafael Hernandez MD is Attending Physician. m 16:56 Svitlana Olson is Primary Nurse. kg 17:30 Foot Right 3 View XRAY In Process Unspecified. EDMS 17:30 Foot Left 3 View XRAY In Process Unspecified. EDMS 17:30 Inserted saline lock: 20 gauge in left antecubital area, using aseptic technique. kg 17:40 Inserted saline lock: 20 gauge in right antecubital area, using aseptic technique. kg 17:43 Blood Culture Adult (2) Sent. kg 17:43 Lactate Sent. kg 17:43 Procalcitonin Sent. kg 18:52 US Lower Extremity Artery Uni Ltd In Process Unspecified. EDMS 18:52 US Extremity Venous Unilateral Ltd In Process Unspecified. EDMS 19:38 Stefania Capone MD is Hospitalizing Provider. jmm 21:20 Foot Left Wo Cont In Process Unspecified. EDMS 21:25 Fall risk band placed. Placed in gown. Bed in low position. Call light in reach. Side kg rails up X2. 23:55 No provider procedures requiring assistance completed. Patient admitted, IV remains in mg2 place. Administered Medications: 18:10 Drug: vancoMYCIN 1 grams Route: IVPB; Infused Over: 2 hrs; Site: left antecubital; kg 22:30 Follow up: IV Status: Completed infusion; IV Intake: 250ml kg 06/18 00:33 Follow up: Response: No adverse reaction kg 06/17 18:10 Drug: Zosyn (piperacillin-tazobactam) 3.375 grams Route: IVPB; Infused Over: 60 mins; kg Site: left antecubital; 19:40 Follow up: Response: No adverse reaction; IV Status: Completed infusion kg 19:52 Follow up: Response: No adverse reaction kg Intake: 22:30 IV: 250ml; Total: 250ml. kg Outcome: 19:38 Decision to Hospitalize by Provider. jmm 20:50 Admitted to ER Hold. Please see [facility] for further documentation. mg2 20:50 Condition: stable 20:50 Instructed on the need for admit, Demonstrated understanding of instructions. 06/18 14:15 Patient left the ED. aa5 Signatures: Dispatcher [employer] EDMS Clyde Sloan PA PA jmm Martinez, Amelia as Calderon, Audri RN RN aa5 Michelle Parker RN RN John Vizcarra RN RN mg2 Svitlana Olson kg Corrections: (The following items were deleted from the chart) 06/17 17:49 17:43 CORONAVIRUS+MR.LAB.ANGELINE drawn and sent. kg EDMS
--- NOTE | 2020-06-17 19:39 | EDPHYS ---
Physician Documentation [facility] Name: Aurora Miller Age: 65 yrs Sex: Female : 1955 Arrival Date: 06/17/2020 Time: 14:06 Bed 30 Private MD: Rafael De La Rosa HPI: 06/17 16:48 This 65 yrs old Female presents to ER via Ambulatory with complaints of Foot jmm Problem. 16:48 The patient presents with pain. Onset: The symptoms/episode began/occurred gradually, 2 jmm day(s) ago. Modifying factors: The symptoms are alleviated by nothing, the symptoms are aggravated by nothing. Associated signs and symptoms: Pertinent negatives: fever. The patient has experienced a previous episode. Historical: - Allergies: 14:19 No Known Allergies; ss - PMHx: 14:19 Diabetes - IDDM; High Cholesterol; Hypertension; ss - PSHx: 14:19 ; Right foot sx; left foot - drianed infection; ss - Immunization history:: Adult Immunizations up to date. - Social history:: Smoking status: Patient denies any tobacco usage or history of. ROS: 16:48 Constitutional: Negative for fever, chills, and weight loss, Cardiovascular: Negative jmm for chest pain, palpitations, and edema, Respiratory: Negative for shortness of breath, cough, wheezing, and pleuritic chest pain, Abdomen/GI: Negative for abdominal pain, nausea, vomiting, diarrhea, and constipation. 16:48 MS/extremity: Positive for pain, swelling. 16:48 All other systems are negative. Exam: 16:48 Constitutional: This is a well developed, well nourished patient who is awake, alert, jmm and in no acute distress. Head/Face: atraumatic. Eyes: EOMI, no conjunctival erythema appreciated ENT: Moist Mucus Membranes Neck: Trachea midline, Supple Chest/axilla: Normal chest wall appearance and motion. Cardiovascular: Regular rate and rhythm. No edema appreciated Respiratory: Normal respirations, no respiratory distress appreciated Abdomen/GI: Non distended, soft Back: Normal ROM 16:48 Skin: erythema and induration noted to the left foot, necrotic wound noted to the medial side of the foot. 16:48 Neuro: Orientation: is normal, Mentation: is normal, Memory: is normal. 16:48 Psych: Behavior/mood is pleasant, cooperative. Vital Signs: 14:15 BP 114 / 72; Pulse 112; Resp 17; Temp 99.7(TE); Pulse Ox 99% on R/A; Weight 78.93 kg; ss Height 5 ft. 4 in. (162.56 cm); Pain 0/10; 18:00 BP 109 / 66; Pulse 59; Resp 18; Pulse Ox 100% on R/A; kg 19:00 BP 110 / 61; Pulse 67; Resp 18; Pulse Ox 100% on R/A; kg 14:15 Body Mass Index 29.87 (78.93 kg, 162.56 cm) ss MDM: 16:48 Patient medically screened. [facility] 19:14 Data reviewed: vital signs, nurses notes. [facility] 19:14 Counseling: I had a detailed discussion with the patient and/or guardian regarding: the [facility] historical points, exam findings, and any diagnostic results supporting the discharge/admit diagnosis, lab results, radiology results, the need for further work-up and treatment in the hospital. ED course: I discussed the patient with Dr. Duarte will consult on admission. . 06/17 16:56 Order name: CBC with Diff; Complete Time: 17:46 [facility] 06/17 16:56 Order name: CMP; Complete Time: 17:46 [facility] 06/17 16:56 Order name: Procalcitonin; Complete Time: 18:08 [facility] 06/17 16:56 Order name: Lactate; Complete Time: 17:46 [facility] 06/17 16:56 Order name: Blood Culture Adult (2) [facility] 06/17 17:46 Order name: CBC Smear Scan; Complete Time: 17:46 [facility] 06/17 18:39 Order name: SARS-COV-2 RT PCR; Complete Time: 18:41 [facility] 06/18 06:19 Order name: CBC with Automated Diff; Complete Time: 09:23 [facility] 06/18 06:43 Order name: Comprehensive Metabolic Panel; Complete Time: 09:23 [facility] 06/18 06:43 Order name: Phosphorus; Complete Time: 09:23 [facility] 06/18 06:43 Order name: Lipid Profile; Complete Time: 09:23 [facility] 06/18 06:43 Order name: Magnesium; Complete Time: 09:23 [facility] 06/18 06:43 Order name: Transferrin Sat/Iron Binding; Complete Time: 09:23 EDMS 06/17 16:56 Order name: Saline Lock; Complete Time: 17:43 m 06/17 16:56 Order name: Foot Right 3 View XRAY; Complete Time: 20:08 [facility] 06/17 16:56 Order name: Foot Left 3 View XRAY; Complete Time: 21:14 m 06/17 17:31 Order name: US Lower Extremity Artery Uni Ltd; Complete Time: 19:03 [facility] 06/17 17:31 Order name: US Extremity Venous Unilateral Ltd; Complete Time: 19:03 [facility] 06/17 17:35 Order name: Foot Left Wo Cont; Complete Time: 09:23 EDMS 06/17 22:56 Order name: CONS Physician Consult EDMS 06/18 06:43 Order name: Ferritin; Complete Time: 09:23 EDMS 06/18 06:43 Order name: Folic Acid, (Folate); Complete Time: 09:23 EDMS 06/18 06:43 Order name: Vitamin B12 Level; Complete Time: 09:23 EDMS 06/18 07:59 Order name: Glucose, Ancillary Testing; Complete Time: 09:23 EDMS Administered Medications: 18:10 Drug: vancoMYCIN 1 grams Route: IVPB; Infused Over: 2 hrs; Site: left antecubital; kg 22:30 Follow up: IV Status: Completed infusion; IV Intake: 250ml kg 06/18 00:33 Follow up: Response: No adverse reaction kg 06/17 18:10 Drug: Zosyn (piperacillin-tazobactam) 3.375 grams Route: IVPB; Infused Over: 60 mins; kg Site: left antecubital; 19:40 Follow up: Response: No adverse reaction; IV Status: Completed infusion kg 19:52 Follow up: Response: No adverse reaction kg Disposition: 06/19 09:27 Co-signature as Attending Physician, Rafael Hernandez MD I agree with the assessment and clarice plan of care. Disposition: 06/17/20 19:38 Hospitalization ordered by Stefania Capone for Inpatient Admission. Preliminary diagnosis is Cellulitis of the Left Foot. - Bed requested for [facility] ER HOLD. - Status is Inpatient Admission. aa5 - Condition is Stable. - Problem is an acute exacerbation. - Symptoms are unchanged. Signatures: Dispatcher [employer] EDRafael Garrett MD MD cha Mickail, Joel, PA PA [facility] Melanie Conde, RN RN aa5 Michelle Parker, BONNY RN ss Sarita Varghese RN RN Svitlana Olson kg Corrections: (The following items were deleted from the chart) 06/17 17:49 17:32 CORONAVIRUS+Z ordered. [facility] EDCO 20:03 19:38 Hospitalization Ordered by Stefania Capone MD for Inpatient Admission. Preliminary cg diagnosis is Cellulitis of the Left Foot. Bed requested for Telemetry/MedSurg (Inpatient). Status is Inpatient Admission. Condition is Stable. Problem is an acute exacerbation. Symptoms are unchanged. [facility] 06/18 14:15 06/17 20:03 06/17/2020 19:38 Hospitalization Ordered by Stefania Capone MD for Inpatient aa5 Admission. Preliminary diagnosis is Cellulitis of the Left Foot. Bed requested for [facility] ER HOLD. Status is Inpatient Admission. Condition is Stable. Problem is an acute exacerbation. Symptoms are unchanged. cg
--- NOTE | 2020-06-17 20:06 | RAD REPORT ---
EXAM DESCRIPTION: RAD - Foot Right 3 View - 06/17/2020 5:30 pm CLINICAL HISTORY: Right foot pain FINDINGS: No acute fracture or dislocation is seen. Air within the soft tissues is not noted. No bony destructive lesion is seen. Large calcaneal spur. Vascular calcifications
--- NOTE | 2020-06-17 21:01 | RAD REPORT ---
EXAM DESCRIPTION: RAD - Foot Left 3 View - 06/17/2020 5:30 pm CLINICAL HISTORY: Left Foot pain FINDINGS: Air is present within the plantar soft tissues in the medial forefoot which may indicate g angrene. Acute bony destructive change this region is not seen. No acute fracture or dislocation. Resection of portion of the second metatarsal
[2020-06-17] MEDS ORDERED: MORPHINE 2 MG/ML SYR IV PRN (23:08)
[2020-06-17] MEDS ORDERED: ACETAMINOPHEN 500 MG TAB PO PRN (23:08)
[2020-06-17] MEDS ORDERED: NA CHLORIDE 0.9% 1,000 ML IV SCH (23:08)
[2020-06-17] MEDS ORDERED: Pharmacy Consult 1 EA XX PRN (23:08)
[2020-06-17] MEDS ORDERED: HYDRALAZINE HCL 20 MG/ML VIAL IV PRN (23:08)
[2020-06-17] MEDS ORDERED: ONDANSETRON 4 MG/2 ML VIAL IV PRN (23:08)
[2020-06-18] MEDS ORDERED: PIPER/TAZO/NS 3.375gm 3.375 GM/100 ML BAG IVPB SCH
[2020-06-18] MEDS ORDERED: VANCOMYCIN 500 MG in NA CHLORIDE 0.9% 100 ML IVPB ONE (00:01)
[2020-06-18 00:55] VITALS: BMI 29.7
[2020-06-18] MEDS ORDERED: Pharmacy Consult 1 EA XX PRN (01:02)
[2020-06-18] MEDS ORDERED: NA CHLORIDE 0.9% 1,000 ML ONE (01:11)
--- NOTE | 2020-06-18 01:11 | P.HP ---
Certification for Inpatient Patient admitted to: Inpatient With expected LOS: >2 Midnights Patient will require the following post-hospital care: Home Health Services Practitioner: I am a practitioner with admitting privileges, knowledge of patient current condition, hospital course, and medical plan of care. Services: Services provided to patient in accordance with Admission requirements found in Title 42 Section 412.3 of the Code of Federal Regulations Patient History Date of Service: 06/18/20 Primary Care Provider: Nicole Reason for admission: left foot cellulitis History of Present Illness: Ms. Miller is a 65 yo F with DM, HTN, and HLD here today with cellulitis of the left foot. She says beginning Tuesday she began to have purulent and bloody drainage fro her foot, soaking her socks. She reports night sweats and chills, denies pain. She says she has been rinsing her foot with water. She has seen wound care in the past for her foot. WBC 13.3. Hgb 9.3. Na 134. BUN 31. Cr 1.51. GFR 34. Glu 365. alk phos 232. procal 0.72. MRI pending. Arterial studies revealed Mild distal lower extremity arterial disease. Allergies No Known Drug Allergies Allergy (Verified 01/24/19 11:09) Unknown Home Medications: Aspirin 81 mg PO DAILY 08/20/14 Atorvastatin Calcium 20 mg PO DAILY 04/19/18 Sitagliptin Phos/Metformin HCl [Janumet 50-1,000 mg Tablet] 1 tab PO BID 04/19/18 lisinopriL [Lisinopril] 1 tab PO DAILY 04/19/18 Insulin Degludec [Tresiba Flextouch U-200] 50 units SQ DAILY 10/31/18 Ciprofloxacin HCl [Cipro 500 MG Tablet] 500 mg PO BID 01/24/19 - Past Medical/Surgical History Has patient received pneumonia vaccine in the past: Yes Diabetic: Yes -: Hypertension -: Hyperlipidemia -: Diabetes mellitus type 2, insulin dependent -: Chronic diabetic foot ulcer left foot -: 2 C sections -: Colonoscopy -: Foot surgeries Psychosocial/ Personal History: Patient lives at home - Family History Family History: Reviewed- Non-Contributory - Family History Mother History Unknown: Yes -: Hypertension, Diabetes, Cancer Notes: adopted - Social History Smoking Status: Never smoker Alcohol use: No CD- Drugs: No Caffeine use: No Place of Residence: Home Review of Systems General: Chills, Sweats, As per HPI Eyes: Unremarkable ENT: Unremarkable Respiratory: Unremarkable Cardiovascular: Unremarkable Gastrointestinal: Unremarkable Genitourinary: Unremarkable Musculoskeletal: Unremarkable Integumentary: As per HPI (bloody and purulent drainage ) Neurological: Unremarkable Lymphatics: Unremarkable Physical Examination - Vital Signs Blood Pressure: 111/56 Pulse: 88 Respirations: 18 Pulse Ox (%): 95 - Physical Exam General: Alert, In no apparent distress, Oriented x3, Cooperative HEENT: Atraumatic, Normocephalic, PERRLA, Mucous membr. moist/pink, EOMI, Sclerae nonicteric Neck: Supple, 2+ carotid pulse no bruit, JVD not distended, No Thyromegaly, No LAD Respiratory: Clear to auscultation bilaterally, Normal air movement Cardiovascular: No edema, Normal pulses, Regular rate/rhythm, Normal S1 S2, No gallops, No rubs, No murmurs Capillary refill: <2 Seconds Gastrointestinal: Normal bowel sounds, Soft and benign, Non-distended, No ascites, No tenderness, No masses, No rebound, No guarding Musculoskeletal: No clubbing, No contractures, Swelling, Erythema, Tenderness, Warmth Integumentary: No rashes, No significant lesion, No cyanosis, Skin breakdown, Tenderness/swelling, Erythema, Warmth, Diabetic ulcer Neurological: Normal speech, Normal strength at 5/5 x4 extr, Normal tone, Sensation intact, Cranial nerves 3-12 intact, Normal affect Lymphatics: No axilla or inguinal lymphadenopathy - Studies Laboratory Data (last 24 hrs) 06/17/20 17:09: Sodium 134 L, Potassium 4.8, BUN 31 H, Creatinine 1.51 H, Glucose 365 H, Total Bilirubin 0.5, AST 32, ALT 35, Alkaline Phosphatase 232 H 06/17/20 17:09: WBC 13.30 H, Hgb 9.3 L, Hct 28.9 L, Plt Count 353 Assessment and Plan - Problems (Diagnosis) (1) Cellulitis Current Visit: Yes Status: Acute Qualifiers: Site of cellulitis: extremity Site of cellulitis of extremity: lower extremity Laterality: left Qualified Code(s): L03.116 - Cellulitis of left lower limb (2) Anemia Current Visit: Yes Status: Chronic Qualifiers: Anemia type: unspecified type Qualified Code(s): D64.9 - Anemia, unspecified (3) Diabetes mellitus Current Visit: No Status: Chronic Qualifiers: Diabetes mellitus type: type 2 Diabetes mellitus jail insulin use: with jail use Diabetes mellitus complication status: with circulatory complication Diabetes mellitus complication detail: with peripheral angiopathy with gangrene Qualified Code(s): E11.52 - Type 2 diabetes mellitus with diabetic peripheral angiopathy with gangrene; Z79.4 - nursing home (current) use of insulin (4) HTN (hypertension) Current Visit: No Status: Chronic Qualifiers: Hypertension type: essential hypertension Qualified Code(s): I10 - Essential (primary) hypertension (5) Hyperlipidemia Current Visit: No Status: Chronic Qualifiers: Hyperlipidemia type: mixed hyperlipidemia Qualified Code(s): E78.2 - Mixed hyperlipidemia (6) Diabetic ulcer of left foot Current Visit: No Status: Chronic Qualifiers: Diabetic foot ulcer location: midfoot Diabetes mellitus type: type 2 Non- pressure ulcer stage: unspecified non-pressure ulcer stage Qualified Code(s): E11.621 - Type 2 diabetes mellitus with foot ulcer; L97.429 - Non-pressure chronic ulcer of left heel and midfoot with unspecified severity - Plan Gerald consulted, Tejas consulted, MRI pending NPO after midnight, continue with IVF and IV antibiotics, renally dose abx iron panel, b12/folate pending accuchecks and sliding scale insulin continue to monitor BP reconcile and continue home medications Discharge Plan: Home Plan to discharge in: 72 Hours - Advance Directives Does patient have a Living Will: No Does patient have a Durable POA for Healthcare: No - Code Status/Comfort Care Code Status Assessed: Yes (full code) Critical Care: No Time Spent Managing Pts Care (In Minutes): 70
[2020-06-18] MEDS: VANCOMYCIN 500 MG in NA CHLORIDE 0.9% 100 ML IVPB ONE (01:43)
[2020-06-18] MEDS: PIPER/TAZO/NS 3.375gm 3.375 GM/100 ML BAG IVPB SCH ×2 (02:08→11:27)
[2020-06-18] MEDS ORDERED: PIPER/TAZO/NS 3.375gm 3.375 GM/100 ML BAG ONE ×2 (02:20→08:46)
[2020-06-18] MEDS ORDERED: NA CHLORIDE 0.9% 100 ML ONE ×2 (02:20→02:42)
[2020-06-18] MEDS ORDERED: VANCOMYCIN 500 MG/VIAL ONE (02:39)
[2020-06-18 06:14] LABS: Absolute Lymphocytes (CBC) 0.9 K/uL (0.7-4.9); Basophils % 0.7 % (0-1.3); Hematocrit 28.5 % (36.0-45.0); Lymphocytes % 8.5 % (15.3-44.8); MPV 7.1 fL (7.6-11.3); RBC Red Blood Cell Count 3.32 M/uL (3.86-4.86)
[2020-06-18 06:43] LABS: ALT/SGPT 29 U/L (12-78); AST/SGOT 19 U/L (15-37); Albumin 2.1 g/dL (3.4-5.0); Alkaline Phosphatase 201 U/L (45-117); BUN Blood Urea Nitrogen 24 mg/dL (7-18); Bicarbonate 23 mmol/L (21-32); Bilirubin Total 0.5 mg/dL (0.2-1.0); Ferritin 295.7 ng/mL (8-388); Folic Acid, (Folate) > 20.0 ng/mL (3.1-17.5); Glucose Level 285 mg/dL (74-106); HDL Cholesterol 19 mg/dL (40-60); LDL Cholesterol, Calculated 59 (<130); Magnesium 2.1 mg/dL (1.8-2.4); Phosphorus 2.6 mg/dL (2.5-4.9); Potassium 4.5 mmol/L (3.5-5.1); Protein, Total 7.1 g/dL (6.4-8.2); Sodium Level 138 mmol/L (136-145); Transferrin 117 mg/dL (200-360)
[2020-06-18] MEDS ORDERED: INSULIN -REGULAR HUMAN 50 UNIT/0.5 ML ML SQ SCH (07:30)
--- NOTE | 2020-06-18 07:45 | RAD REPORT ---
EXAM DESCRIPTION: MRI - Foot Left Wo Cont - 06/17/2020 9:20 pm CLINICAL HISTORY: Foot pain swelling COMPARISON: 2019 TECHNIQUE: Axial, sagittal and coronal magnetic resonance imaging left foot FINDINGS: Some images are degraded by patient motion artifact Amputation involves portion of second metatarsal. Soft tissue ulceration involves distal medial forefoot. Air is present within the soft tissues. Narrowing involves several MCP joints with cortical irregularity and abnormal signal. I suspect this represents degenerative changes. No definite osteomyelitis seen. IMPRESSION: Air within the soft tissues of the medial forefoot suspicious for gangrene Examination is suboptimal secondary to patient motion artifact
[2020-06-18] MEDS ORDERED: INSULIN -REGULAR HUMAN 50 UNIT/0.5 ML ML ONE (08:45)
[2020-06-18] MEDS ORDERED: CLINDAMYCIN INJ 600 MG in NA CHLORIDE 0.9% 50 ML IV SCH (09:00)
[2020-06-18 10:40] VITALS: O2SAT 94
[2020-06-18 11:21] VITALS: BP 109/60; TEMP 99.1
--- NOTE | 2020-06-18 15:49 | CON ---
History Of Present Illness: The patient is a 65-year-old female, known to me from previous admission s. The patient is coming in with left foot gangrenous changes and MRI showing the patient has air wi thin soft tissue of the medial forefront, suspicious of gangrene. No definite osteomyelitis noted. The patient claimed that she got new shoes after which she developed this wound plus her sugars are n ot very well controlled as she is being noncompliant to her medications. 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 Coming in with cellulitis of left foot and gangrenous changes w ith foul odor. Past Medical History: Hypertension, hyperlipidemia, diabetes mellitus, chronic diabetic foot ulcer, , multiple foot surgeries, and colonoscopy. Social History: Nonsmoker, nondrinker. Family History: Noncontributory. Medications: Clindamycin, Zosyn, and vancomycin. See MAR for other medications. Allergies: NO KNOWN DRUG ALLERGIES. Review of Systems: A 10-point review was performed. Physical Examination: General: This is a 65-year-old female, lying in bed, not in any acute cardiopulmonary distress. Vital Signs: Temperature 99, pulse 85, respirations 18, blood pressure 109/60. HEENT: Unremarkable. Poor dental hygiene. Neck: Supple. Lungs: Clear to auscultation. Heart: S1, S2. Regular. Abdomen: Soft, nontender. Bowel sounds present. Extremity: Left foot with gangrenous changes and ulceration noted with very strong foul. Laboratory Data: Shows WBC 10.4 down from 13.3, hemoglobin 9.5, platelets are 326. Chemistry shows sodium 138, potassium 4.5, chloride 108, bicarb 23, BUN 24, creatinine 1.22, glucose is 285, alkaline phosphatase is 201, albumin is 2.1. Procalcitonin is 0.72. MRI showing possible gas gangrene bailey es. No osteomyelitis identified. Assessment And Plan: A 65-year-old female with possible gas gangrene and diabetic foot ulcer, curren tly being treated with clindamycin and vancomycin and Zosyn. Uncontrolled diabetes mellitus, leukocy tosis, improving. Protein-calorie malnourishment and elevated Procalcitonin. Keep leg elevated, anusha ly Betadine to the wound site. The patient is being transferred to [facility] in [place] because of no b eds available at this facility. We will continue to monitor while the patient is here. The patient might need surgical intervention to evaluate gas gangrene. We will follow the patient closely. Thank you Dr. Capone for consult. NF/JOLLY Voice ID: [id number] Report ID: [id number]
[2020-06-19] MEDS ORDERED: VANCOMYCIN 1.5 GM in NA CHLORIDE 0.9% 500 ML IVPB SCH (14:00)
--- NOTE | 2020-06-23 20:09 | P.DS ---
Discharge Date: 06/18/20 Primary Care Provider: Nicole Disposition: TRANSFER TO [facility] Discharge Condition: GOOD Reason for Admission: left foot cellulitis Brief History of Present Illness: Ms. Miller is a 65 yo F with DM, HTN, and HLD here today with cellulitis of the left foot. She says beginning Tuesday she began to have purulent and bloody drainage fro her foot, soaking her socks. She reports night sweats and chills, denies pain. She says she has been rinsing her foot with water. She has seen wound care in the past for her foot. WBC 13.3. Hgb 9.3. Na 134. BUN 31. Cr 1.51. GFR 34. Glu 365. alk phos 232. procal 0.72. MRI pending. Arterial studies revealed Mild distal lower extremity arterial disease. Hospital Course: Patient will probably need general surgery intervention. At this time, we do not really have any beds available on the floor so decision was made to transfer her at [facility]. Patient was agreeable and we will transfer her [facility]. Air Quality Specialist was notified to make contact with general surgery to make sure they're agreeable prior to transfer. Vital Signs/Physical Exam: Temp Pulse Resp BP Pulse Ox 99.1 F 85 18 109/60 98 06/18/20 08:00 06/18/20 08:00 06/18/20 08:00 06/18/20 08:00 06/18/20 08:00 General: Alert, In no apparent distress, Oriented x3 Laboratory Data at Discharge: WBC 10.40 K/uL (4.3-10.9) D 06/18/20 05:45 Hgb 9.5 g/dL (12.0-15.0) L 06/18/20 05:45 Hct 28.5 % (36.0-45.0) L 06/18/20 05:45 Plt Count 326 K/uL (152-406) 06/18/20 05:45 Sodium 138 mmol/L (136-145) 06/18/20 05:45 Potassium 4.5 mmol/L (3.5-5.1) 06/18/20 05:45 BUN 24 mg/dL (7-18) H 06/18/20 05:45 Creatinine 1.22 mg/dL (0.55-1.3) 06/18/20 05:45 Glucose 285 mg/dL (74-106) H 06/18/20 05:45 Phosphorus 2.6 mg/dL (2.5-4.9) 06/18/20 05:45 Magnesium 2.1 mg/dL (1.8-2.4) 06/18/20 05:45 Total Bilirubin 0.5 mg/dL (0.2-1.0) 06/18/20 05:45 AST 19 U/L (15-37) 06/18/20 05:45 ALT 29 U/L (12-78) 06/18/20 05:45 Alkaline Phosphatase 201 U/L (45-117) H 06/18/20 05:45 Triglycerides 101 mg/dL (<150) 06/18/20 05:45 Cholesterol 98 mg/dL (<200) 06/18/20 05:45 HDL Cholesterol 19 mg/dL (40-60) L 06/18/20 05:45 Cholesterol/HDL Ratio 5.16 06/18/20 05:45 Home Medications: Aspirin 81 mg PO DAILY 08/20/14 Atorvastatin Calcium 20 mg PO DAILY 04/19/18 Sitagliptin Phos/Metformin HCl [Janumet 50-1,000 mg Tablet] 1 tab PO BID 04/19/18 lisinopriL [Lisinopril] 1 tab PO DAILY 04/19/18 Insulin Degludec [Tresiba Flextouch U-200] 50 units SQ DAILY 10/31/18 Ciprofloxacin HCl [Cipro 500 MG Tablet] 500 mg PO BID 01/24/19 Physician Discharge Instructions: -OK TO Transferred to [facility] Diet: AHA Followup: Navin Ely [Primary Care Provider] - Time spent managing pt's care (in minutes): 35
== END 2020-06-18 12:15 | disposition short-term general hospital (02) | DRG 300 ==
LOC: ER 14:04 → ERHOLD 22:55
PROVIDERS: ADMIT Hospitalist; ATTEND Hospitalist
DX: E11.52 Type 2 diabetes mellitus with diabetic peripheral angiopathy with gangrene (principal); L03.116 Cellulitis of left lower limb; I96 Gangrene, not elsewhere classified; L97.429 Non-pressure chronic ulcer of left heel and midfoot with unspecified severity; E46 Unspecified protein-calorie malnutrition; E78.2 Mixed hyperlipidemia; E11.621 Type 2 diabetes mellitus with foot ulcer; D72.829 Elevated white blood cell count, unspecified; I10 Essential (primary) hypertension; D64.9 Anemia, unspecified; Z79.82 Long term (current) use of aspirin; Z79.4 Long term (current) use of insulin; Z79.899 Other long term (current) drug therapy; Z91.14 Patient's other noncompliance with medication regimen; Z89.429 Acquired absence of other toe(s), unspecified side; Z68.29 Body mass index [BMI] 29.0-29.9, adult; Z20.822 Contact with and (suspected) exposure to COVID-19
CPT/HCPCS: 36415; 80053; 80061; 82607; 82728; 82746; 82947; 83540; 83605; 83735; 84100; 84145; 84466; 85025; 87040; 93926; 93971; 94760; 96365; 96366; 96368; 99285; J2543; J3370; J7030; J7050; U0003